=== PATIENT | male | born 1940 | race Caucasian/White ===

== ENCOUNTER → 2017-09-24 10:20 | Outpatient (CLI) | payer MEDICARE, OTHER, SELFPAY ==
--- NOTE | 2017-09-24 | DI.CT.S_ITS ---
PROCEDURE: CT ABDOMEN WO/W CON INDICATIONS: RENAL CYST TECHNIQUE: Optional 5 mm thick noncontrast images acquired from the diaphragm to the iliac crests. After the administration of intravenous contrast, 5 mm thick images again acquired from the diaphragm to the iliac crests in the arterial and urographic phases. 5 mm thick coronal and sagittal reformats were then acquired. For radiation dose reduction, the following was used: automated exposure control, adjustment of mA and/or kV according to patient size. COMPARISON: [facility], US, US ABDOMEN COMPLETE, 09/19/2017, 13:29. [facility], CT, KIDNEY/ URETER/BLADDER, 08/19/2007, 11:21. FINDINGS: Image quality: Excellent. Lung bases: Bilobular 8mm diameter nodule within the right lung base is present. 2 mm diameter nodule within the right anterior lung base. These are unchanged. Fat-containing right posterior hemidiaphragmatic hernia. Lung bases are otherwise clear. Heart size is normal. Genitourinary: Kidneys are normal in size. There are 2 adjacent right interpolar renal cyst measuring 10 mm and 7 mm. No perinephric fat stranding. Nonobstructing 3 mm diameter right interpolar renal calculus is present. Within the left interpolar kidney laterally, there is a 21 mm diameter water density focus which measures no enhancement, and demonstrates a solitary thin septation anteriorly. Simple appearing cyst within the inferior pole left kidney medially, which is partially exophytic, measuring 17 mm. Nonobstructing 2 mm diameter calcification within the inferior pole left kidney. Other solid organs: Liver is normal in size and enhancement. Gallbladder is within normal limits. Biliary system is non dilated. Pancreas enhances normally. Spleen is normal in size and enhancement. No adrenal nodules. Peritoneum and bowel: Unenhanced bowel loops are normal in wall thickness and caliber. No free fluid or air. Nodes and vessels: No retroperitoneal or mesenteric adenopathy by size criteria. Aorta and inferior vena cava are normal in caliber. Bones: No suspicious bony lesions. No vertebral body compression fractures. Miscellaneous: No ventral hernias. IMPRESSION: 1. Benign left interpolar renal cyst. No evidence of malignancy. 2. Benign right lung base nodules. 3. Nonobstructing bilateral renal calculi. Dictated by: Kyra Farfan M.D. on 09/24/2017 at 11:56 Approved by: Kyra Farfan M.D. on 09/24/2017 at 12:06
== END ==
PROVIDERS: Family Provider Urology; PCP Family Medicine; Visit Provider Family Medicine
DX: N28.1 Cyst of kidney, acquired (principal); R91.8 Other nonspecific abnormal finding of lung field; N20.0 Calculus of kidney
CPT/HCPCS: 74170; Q9967

== ENCOUNTER → 2018-03-13 16:27 | Outpatient (CLI) | payer MEDICARE, OTHER, SELFPAY ==
--- NOTE | 2018-03-13 16:33 | DI.RAD.S_ITS ---
PROCEDURE: XR SHOULDER RT MIN 2V INDICATIONS: RIGHT SHOULDER PAIN TECHNIQUE: 3 views of the shoulder were acquired. COMPARISON: None. FINDINGS: Bones: No fractures or dislocations. No suspicious bony lesions. Visualized ribs appear intact. Mild joint narrowing with periarticular osteophyte formation of the acromioclavicular and glenohumeral joint. Soft tissues: Trace calcification involving the rotator cuff. Dystrophic calcification adjacent to the acromion. IMPRESSION: Mild acromioclavicular and glenohumeral joint degeneration. Dystrophic calcification adjacent to the acromion and trace calcific tendinitis of the rotator cuff. Dictated by: Francis MUÑOZ Interpreted: Lesly Plunkett MD on 03/13/2018 at 16:45 Approved by: Lesly Plunkett M.D. on 03/13/2018 at 17:01
== END ==
PROVIDERS: Family Provider Urology; PCP Family Medicine; Referring Provider Internal Medicine Endocrinology, Diabetes & Metabolism; Visit Provider Family Medicine
DX: M25.511 Pain in right shoulder (principal); M19.011 Primary osteoarthritis, right shoulder; M25.811 Other specified joint disorders, right shoulder
CPT/HCPCS: 73030

== ENCOUNTER → 2018-03-30 10:06 | Outpatient (CLI) | payer MEDICARE, OTHER, SELFPAY | PROVIDERS: Family Provider Family Medicine; PCP Family Medicine; Visit Provider Urology | DX: R97.20 Elevated prostate specific antigen [PSA] (principal) | CPT/HCPCS: 36415; 84153 ==

== ENCOUNTER → 2019-04-21 10:22 | Outpatient (CLI) | payer MEDICARE, OTHER, SELFPAY ==
[2019-04-21 10:48] LABS: Blood Urea Nitrogen 25 mg/dL (9-20); Estimated Glomerular Filt Rate > 60.0 mL/min (>60)
== END ==
PROVIDERS: PCP Family Medicine; Visit Provider Physician Assistant
DX: N28.1 Cyst of kidney, acquired (principal); N42.31 Prostatic intraepithelial neoplasia
CPT/HCPCS: 36415; 82565; 84520

== ENCOUNTER → 2019-04-22 11:24 | Outpatient (CLI) | payer MEDICARE, OTHER, SELFPAY ==
--- NOTE | 2019-04-22 | DI.CT.S_ITS ---
PROCEDURE: CT ABDOMEN WO/W CON INDICATIONS: Cyst of kidney, acquired TECHNIQUE: Optional 5 mm thick noncontrast images acquired from the diaphragm to the iliac crests. After the administration of intravenous contrast, 5 mm thick images again acquired from the diaphragm to the iliac crests in the arterial and urographic phases. 5 mm thick coronal and sagittal reformats were then acquired. For radiation dose reduction, the following was used: automated exposure control, adjustment of mA and/or kV according to patient size. COMPARISON: [facility], CT, CT ABDOMEN WO/W CON, 09/24/2017, 10:26. FINDINGS: Image quality: Excellent. Lung bases: Lung bases are clear. Heart size is normal. Genitourinary: The kidneys demonstrate symmetric size and enhancement. A low density cortical cyst is present within the midpole the left kidney. An intermediate density exophytic cyst is present off the lower pole the left kidney. This demonstrates 25 Hounsfield units on the noncontrast and arterial phase studies and 27 Hounsfield units on the delayed phase study. An 8 mm diameter cyst is also present within the right renal cortex. No hydronephrosis or nephrolithiasis. Other solid organs: Liver is normal in size and enhancement. Gallbladder is unremarkable. Biliary system is non dilated. Pancreas enhances normally. Spleen is normal in size and enhancement. No adrenal nodules. Peritoneum and bowel: Unenhanced bowel loops are normal in wall thickness and caliber. No free fluid or air. Nodes and vessels: No retroperitoneal or mesenteric adenopathy by size criteria. Aorta and inferior vena cava are normal in caliber. Bones: No suspicious bony lesions. No vertebral body compression fractures. Miscellaneous: No ventral hernias. IMPRESSION: 1. Bilateral renal cysts. The left lower pole renal cyst is slightly hyperdense in nature. No hydronephrosis or nephrolithiasis. No further followup recommended. Dictated by: Denise Bautista M.D. on 04/22/2019 at 14:52 Approved by: Denise Bautista M.D. on 04/22/2019 at 15:00
== END ==
PROVIDERS: PCP Family Medicine; Visit Provider Physician Assistant
DX: N28.1 Cyst of kidney, acquired (principal)
CPT/HCPCS: 74170; Q9967

== ENCOUNTER → 2020-02-29 07:39 | Outpatient (CLI) | payer MEDICARE, OTHER, SELFPAY ==
--- NOTE | 2020-02-29 | DI.MRI.S_ITS ---
PROCEDURE: MR HEAD/BRAIN WO/W CON INDICATIONS: Headache, unspecified TECHNIQUE: Noncontrast axial T1 spin echo, axial T2 fast spin echo, sagittal and axial FLAIR, coronal T2 fast spin echo, axial gradient echo, axial diffusion and ADC through the brain. After the administration of contrast, axial and coronal T1 spin echo with fat saturation through the brain. COMPARISON: None. FINDINGS: Image quality: Excellent. CSF spaces: Basal cisterns are patent. No extra-axial fluid collections. Ventricles are normal in size and shape. Brain: No midline shift. No intracranial bleeds or masses. No abnormal intracranial enhancement. There is cerebral volume loss for age. There is periventricular white matter chronic small vessel ischemic change. The brainstem appears normal. Diffusion-weighted images demonstrate no acute ischemic insults. No chronic ischemic insults. Normal intravascular flow voids are present. Skull and face: Calvarial marrow is normal in signal. Orbits appear normal. Sinuses: Sinuses and mastoids appear clear. IMPRESSION: 1. Volume loss and small vessel ischemic disease. 2. No acute process. No recent infarct. Dictated by: Kyra Farfan M.D. on 02/29/2020 at 10:28 Approved by: Kyra Farfan M.D. on 02/29/2020 at 10:29
== END ==
PROVIDERS: PCP Family Medicine; Referring Provider Family Medicine; Visit Provider Family Medicine
DX: R51.9 Headache, unspecified (principal); H57.12 Ocular pain, left eye
CPT/HCPCS: 70553

== ENCOUNTER → 2020-05-26 15:19 | Outpatient (CLI) | payer MEDICARE, OTHER, SELFPAY ==
[2020-05-26 16:14] LABS: Appearance Urine UA CLEAR; Bilirubin Urine UA NEGATIVE (NEGATIVE); Color Urine UA YELLOW; Glucose Urine UA NEGATIVE (Negative); Ketones Urine UA NEGATIVE (NEGATIVE); Leukocyte Esterase Urine UA NEGATIVE (NEGATIVE); Nitrite Urine UA NEGATIVE (Negative); Occult Blood Urine UA 3+ (Negative); Protein Urine UA NEGATIVE (Negative); Specific Gravity Urine UA 1.025 (1.000-1.035); Urobilinogen Urine UA 0.2 E.U./dL (0.2)
[2020-05-26 16:16] LABS: Bacteria Urine None Seen; WBC Urine None Seen (0-5/HPF)
[2020-05-26 16:26] LABS: Amorphous Sediment Urine 2+; Culture Indicated Urine Cult Not Indicated; RBC Urine 5-10/HPF (0-5/HPF)
== END ==
PROVIDERS: PCP Family Medicine; Referring Provider Specialist; Visit Provider Specialist
DX: N39.0 Urinary tract infection, site not specified (principal)
CPT/HCPCS: 81003; 81015

== ENCOUNTER 2020-07-17 14:13 | Emergency (ER) | payer MEDICARE, OTHER, SELFPAY ==
[2020-07-17] VITALS (12 sets, daily range): BP systolic 120–182; BP diastolic 68–93; PULSE 103–129; RESP 18–96; TEMP 36.6–37.1; O2SAT 94–97
--- NOTE | 2020-07-17 15:20 | ED.GENADULT ---
HPI - General Adult General Chief complaint: Urogenital-Male Stated complaint: Bad Reaction, Diarrhea, Shock, Muscle Pain Time Seen by Provider: 07/17/20 15:07 Source: patient and family Mode of arrival: Wheelchair Limitations: no limitations History of Present Illness HPI narrative: Patient is a 80-year-old male here for evaluation of multiple complaints. He states if the past couple days he has had burning with urination. Has had hesitancy. He states the pain is at the tip of his penis. He does state that he has have urinary frequency and dysuria. He does have prostate issues. He states that this morning he had 1 episode of uncontrollable diarrhea. That has symptoms resolved. He has not had any recent antibiotics. He has had prostatitis in the past every states this feels different than that. Denies any recent antibiotics. No recent travel. No vomiting. Related Data Home Medications Medication Instructions Recorded Confirmed aspirin 81 mg tablet,delayed 81 mg PO DAILY 02/25/20 05/23/20 release glipizide 5 mg tablet 5 mg PO DAILY 02/25/20 05/23/20 losartan 25 mg tablet 25 mg PO DAILY 02/25/20 05/23/20 metformin 500 mg tablet 500 mg PO DAILY 02/25/20 05/23/20 simvastatin 20 mg tablet 20 mg PO DAILY 02/25/20 05/23/20 Previous Rx's Medication Instructions Recorded tamsulosin 0.4 mg capsule 0.4 mg PO BEDTIME #90 cap 02/28/20 ciprofloxacin HCl 500 mg tablet 500 mg PO BID #6 tab 04/19/20 levofloxacin 500 mg PO DAILY 5 Days #5 tab 07/17/20 phenazopyridine [Pyridium] 100 mg PO TID PRN #6 tab 07/17/20 Allergies Allergy/AdvReac Type Severity Reaction Status Date / Time erythromycin base Allergy Intermediate RASH Unverified 05/23/20 11:20 [ERYTHROMYCIN BASE] Review of Systems Constitutional Constitutional: Denies fatigue and Denies fever(s) Cardiovascular Cardiovascular: Denies chest pain and Denies dyspnea Respiratory Respiratory: Denies dyspnea Gastrointestinal Gastrointestinal: Denies abdominal pain, Reports diarrhea, Denies nausea and Denies vomiting Genitourinary Genitourinary: Reports dysuria, Reports urinary hesitancy, Reports urinary incontinence and Reports urinary urgency Genitourinary: Reports dysuria, Reports urinary incontinence, Reports urinary hesitancy and Reports urinary urgency Musculoskeletal Musculoskeletal: Denies arthralgias and Denies myalgias Integumentary/Breasts Skin/Breast: Denies rash Neurologic Neurologic: Denies behavioral changes Psychiatric Psychiatric: Denies behavioral changes Endocrine Endocrine: Denies fatigue Hematologic/Lymphatic On Anticoagulants: No Allergic/Immunologic Allergic/Immunologic: Denies urticaria Patient History Medical History Diabetes Elevated PSA Erectile dysfunction History of nephrolithiasis Kidney stones 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 Social History Smoking Status: Never smoker Smoking Status: Never smoker alcohol intake frequency: other Substance Use Type: does not use Exam Initial Vital Signs Initial Vital Signs: Vital Signs Temperature 98.7 F 07/17/20 14:26 Pulse Rate 122 H 07/17/20 14:26 Respiratory Rate 18 07/17/20 14:26 Blood Pressure 160/75 H 07/17/20 14:26 Pulse Oximetry 97 07/17/20 14:26 Const General: cooperative and comfortable Limitations: mental status not altered HENMT Head: normal to inspection and normocephalic Resp Effort & Inspection: normal respiratory effort Auscultation: clear to auscultation bilaterally Cardio Rate: tachycardic Rhythm: regular rhythm Pulses: radial pulses present GI Inspection: non-distended Palpation: soft, No firm and No tender Skin Lesions: no lesions Rashes: no rashes Neuro General: patient alert and patient awake Cognition: normal cognition Speech: speech normal Extrem General: capillary refill normal Psych Appearance: grossly normal and well kempt Course Orders Ordered: ED Orders 07/17/20 14:32 EKG-12 Lead Stat RT Consult Eval and Treat Now 07/17/20 15:00 Urine Culture Stat Urine Microscopic Stat 07/17/20 15:08 Blood Culture Stat Complete Blood Count AUTO DIFF Stat Comprehensive Metabolic Panel Stat Lactate (Lactic Acid) Stat Lipase Stat Partial Thromboplastin Time Stat Procalcitonin Stat Prothrombin Time INR Stat Discontinued Medications Sodium Chloride (Normal Saline 0.9%) 1,000 mls @ 1,000 mls/hr IV BOLUS ONE Stop: 07/17/20 15:31 Last Infusion: 07/17/20 16:36 Dose: 0 mls/hr Documented by: Admin: 07/17/20 15:27 Dose: 1,000 mls/hr Documented by: ROSANNE Levofloxacin (Levofloxacin 250 Mg Tablet) 500 mg PO NOW ONE Stop: 07/17/20 17:08 Last Admin: 07/17/20 17:39 Dose: 500 mg Documented by: ROSANNE Phenazopyridine HCl (Phenazopyridine 100 Mg Tablet) 100 mg PO NOW ONE Stop: 07/17/20 17:57 Last Admin: 07/17/20 18:25 Dose: 100 mg Documented by: KEVIN Vital Signs Vital signs: Vital Signs - 8 hr 07/17/20 14:26 07/17/20 15:32 07/17/20 16:00 Temperature 98.7 F Pulse Rate 122 H 111 H 103 H Respiratory Rate 18 22 22 Blood Pressure 160/75 H 122/72 Pulse Oximetry 97 94 95 07/17/20 16:30 07/17/20 16:34 07/17/20 17:02 Temperature Pulse Rate 129 H 111 H 121 H Respiratory Rate 37 H 23 Blood Pressure 182/93 H 151/87 H Pulse Oximetry 95 97 96 07/17/20 17:30 07/17/20 17:38 07/17/20 17:39 Temperature Pulse Rate 112 H 110 H Respiratory Rate Blood Pressure 136/71 Pulse Oximetry 96 95 07/17/20 18:00 07/17/20 18:03 07/17/20 18:32 Temperature 97.9 F Pulse Rate 111 H 111 H Respiratory Rate 96 H Blood Pressure 120/68 120/68 Pulse Oximetry 96 96 Medical Decision Making Lab Data Lab results reviewed: Yes I reviewed the patient's lab results. Result diagrams: 07/17/20 15:08 07/17/20 15:08 Labs: Lab Results 07/17/20 07/17/20 07/17/20 Range/Units 15:00 15:08 15:08 WBC 23.5 H (4.5-11.0) X10^3/uL RBC 4.74 (4.5-5.9) X10^6/uL Hgb 14.2 (13.5-17.5) g/dL Hct 42.5 (41-53) % MCV 89.7 (80-100) fL MCH 29.9 (26-34) PG MCHC 33.3 (30-36) % RDW 13.4 (11.6-14.8) % Plt Count 192 (150-400) X10^3/uL Neut % (Auto) 94.4 H (50-75) % Lymph % (Auto) 1.2 L (25-40) % [place] % (Auto) 4.0 (3-14) % Eos % (Auto) 0.1 L (2-4) % Baso % (Auto) 0.3 (0-2) % Neut # (Auto) 26931 H (6692-4118) /uL Lymph # (Auto) 300 L (1477-7440) /uL [place] # (Auto) 1000 H (0-900) /uL Eos # (Auto) 0 (0-450) /uL Baso # (Auto) 100 (0-100) /uL PT 11.5 (10.1-12.7) SECONDS INR 1.0 (0.9-1.3) APTT 28 (26.4-36.2) SECONDS Sodium (137-145) mmol/L Potassium (3.4-5.1) mmol/L Chloride (98-107) mmol/L Carbon Dioxide (22-32) mmol/L BUN (9-20) mg/dL Creatinine (0.66-1.25) mg/dL Estimated GFR (>60) mL/min BUN/Creatinine Ratio (6-22) Glucose (80-110) mg/dL Lactate (0.7-2.1) mmol/L Calcium (8.4-10.2) mg/dL Total Bilirubin (0.2-1.3) mg/dL AST (17-59) IU/L ALT (<50) IU/L Alkaline Phosphatase (38-126) U/L Total Protein (6.3-8.2) g/dL Albumin (3.5-5.0) g/dL Globulin (1.7-4.1) g/dL Albumin/Globulin Ratio (1.0-2.8) Lipase (23-300) U/L Procalcitonin (<0.5) ng/mL Urine RBC 5-10/hpf H (0-5/HPF) Urine WBC 30-100/hpf H (0-5/HPF) Ur Squamous Epith Cells None seen (0-5/HPF) Urine Bacteria Few (2-10) H (None) Ur Culture Indicated? Specimen cultured 07/17/20 07/17/20 Range/Units 15:08 15:08 WBC (4.5-11.0) X10^3/uL RBC (4.5-5.9) X10^6/uL Hgb (13.5-17.5) g/dL Hct (41-53) % MCV (80-100) fL MCH (26-34) PG MCHC (30-36) % RDW (11.6-14.8) % Plt Count (150-400) X10^3/uL Neut % (Auto) (50-75) % Lymph % (Auto) (25-40) % [place] % (Auto) (3-14) % Eos % (Auto) (2-4) % Baso % (Auto) (0-2) % Neut # (Auto) (3861-7453) /uL Lymph # (Auto) (6707-6783) /uL [place] # (Auto) (0-900) /uL Eos # (Auto) (0-450) /uL Baso # (Auto) (0-100) /uL PT (10.1-12.7) SECONDS INR (0.9-1.3) APTT (26.4-36.2) SECONDS Sodium 132 L (137-145) mmol/L Potassium 4.6 (3.4-5.1) mmol/L Chloride 100 (98-107) mmol/L Carbon Dioxide 25 (22-32) mmol/L BUN 29 H (9-20) mg/dL Creatinine 0.88 (0.66-1.25) mg/dL Estimated GFR > 60.0 (>60) mL/min BUN/Creatinine Ratio 33.0 H (6-22) Glucose 228 H (80-110) mg/dL Lactate 1.5 (0.7-2.1) mmol/L Calcium 9.3 (8.4-10.2) mg/dL Total Bilirubin 0.6 (0.2-1.3) mg/dL AST 24 (17-59) IU/L ALT 20 (<50) IU/L Alkaline Phosphatase 79 (38-126) U/L Total Protein 7.0 (6.3-8.2) g/dL Albumin 4.2 (3.5-5.0) g/dL Globulin 2.8 (1.7-4.1) g/dL Albumin/Globulin Ratio 1.5 (1.0-2.8) Lipase 27 (23-300) U/L Procalcitonin 0.39 (<0.5) ng/mL Urine RBC (0-5/HPF) Urine WBC (0-5/HPF) Ur Squamous Epith Cells (0-5/HPF) Urine Bacteria (None) Ur Culture Indicated? Urine Dip Bedside Urine Glucose Negative Bedside Urine Bilirubin - Negative Bedside Urine Ketone - Negative Urine Specific [place] 1.025 Bedside Urine Occult Blood ++ Bedside Urine pH 6.0 Bedside Urine Protein - Negative Bedside Urine Urobilinogen - Negative Bedside Urine Nitrite - Negative Bedside Urine Leukocytes ++ 125 Esterase Point of care testing: Urine Dip Bedside Urine Glucose Negative Bedside Urine Bilirubin - Negative Bedside Urine Ketone - Negative Urine Specific [place] 1.025 Bedside Urine Occult Blood ++ Bedside Urine pH 6.0 Bedside Urine Protein - Negative Bedside Urine Urobilinogen - Negative Bedside Urine Nitrite - Negative Bedside Urine Leukocytes ++ 125 Esterase ECG Data Attestation: I personally reviewed and interpreted this ECG as follows: Prior ECG tracings: not available for review Interpretation: Sinus tachycardia Ventricular rate of 118 Normal axis Normal QRS Normal QTC No ST T wave changes MDM Narrative Medical decision making narrative: Patient is nontoxic appearing. He does have a soft abdomen. His respiratory rate was not 96 has was listed on his vital signs. This was a mistake in input. Was tachycardic with this did improve with fluids. He is having quite a bit a urinary symptoms. I do suspect that this is the reason for his leukocytosis. I did not do a prostate exam on him today however he is not having any symptoms of his prior episodes of prostatitis. Will start him on Levaquin for urinary tract infection. Patient has not had any further diarrhea. I do feel that C diff is unlikely given his presentation although it is a suspicion if things continue obtaining a stool sample may be helpful. Will also give peridium for his symptoms peer he was given return precautions and follow-up instructions. He expressed understanding and agreement. Discharge Plan Departure Patient Disposition: Home Clinical Impression: Urinary tract infection Instructions: DI for Urinary Tract Infection (UTI) Activity Restrictions/Additional Instructions: Recommend that you take the Pyridium as directed. Also recommend you take the antibiotic as directed. Since you are taking so much ibuprofen/Motrin I do recommend you start on a medicine such as famotidine/Pepcid. You can purchase this [id number]. This medication is helpful in protecting your stomach against ulcers. Contact your primary provider for follow-up. Contact your urologist for follow-up as well. Return to the emergency department for any new or worsening symptoms Prescriptions: New levofloxacin 500 mg tablet 500 mg PO DAILY 5 Days Qty: 5 RF: 0 phenazopyridine [Pyridium] 100 mg tablet 100 mg PO TID PRN (Reason: pain) Qty: 6 RF: 0 No Action glipizide 5 mg tablet 5 mg PO DAILY RF: 0 metformin 500 mg tablet 500 mg PO DAILY RF: 0 simvastatin 20 mg tablet 20 mg PO DAILY RF: 0 losartan 25 mg tablet 25 mg PO DAILY RF: 0 aspirin [Adult Aspirin Regimen] 81 mg tablet,delayed release (DR/EC) 81 mg PO DAILY RF: 0 ciprofloxacin HCl [Cipro] 500 mg tablet 500 mg PO BID Qty: 6 RF: 0 tamsulosin 0.4 mg capsule 0.4 mg PO BEDTIME Qty: 90 RF: 3 Referrals: Jesús Chavez MD [Primary Care Provider] -
[2020-07-17 15:22] LABS: Add Manual Diff / Slide Review NO; Basophils Absolute Auto 100 /uL (0-100); Basophils Percent Auto 0.3 % (0-2); Eosinophils Absolute Auto 0 /uL (0-450); Eosinophils Percent Auto 0.1 % (2-4); Hematocrit 42.5 % (41-53); Hemoglobin 14.2 g/dL (13.5-17.5); Lymphocytes Absolute Auto 300 /uL (1100-4500); Lymphocytes Percent Auto 1.2 % (25-40); Mean Corpuscular HGB Conc 33.3 % (30-36); Mean Corpuscular Hemoglobin 29.9 PG (26-34); Mean Corpuscular Volume 89.7 fL (80-100); Monocytes Absolute Auto 1000 /uL (0-900); Neutrophils Absolute Auto 22200 /uL (1500-7000); Neutrophils Percent Auto 94.4 % (50-75); Platelet Count 192 X10^3/uL (150-400); Red Blood Cell Count 4.74 X10^6/uL (4.5-5.9); Red Cell Distribution Width 13.4 % (11.6-14.8); White Blood Cell Count 23.5 X10^3/uL (4.5-11.0)
[2020-07-17] MEDS: SODIUM CHLORIDE 0.9% 1,000 ML 1000 ML IV (15:27)
[2020-07-17 15:32] LABS: Prothrombin Time 11.5 SECONDS (10.1-12.7)
[2020-07-17 15:35] LABS: PTT Partial Thromboplastin Tim 28 SECONDS (26.4-36.2)
[2020-07-17 15:37] LABS: Bacteria Urine Few (2-10); Culture Indicated Urine Specimen Cultured; RBC Urine 5-10/HPF (0-5/HPF); Squamous Epithelial Cell Urine None Seen (0-5/HPF); WBC Urine 30-100/HPF (0-5/HPF)
[2020-07-17 15:39] LABS: Lactate (Lactic Acid) 1.5 mmol/L (0.7-2.1)
[2020-07-17 15:41] LABS: Alanine Aminotransferase 20 IU/L (<50); Albumin 4.2 g/dL (3.5-5.0); Albumin Globulin Ratio 1.5 (1.0-2.8); Alkaline Phosphatase 79 U/L (38-126); Aspartate Aminotransferase 24 IU/L (17-59); Bilirubin Total 0.6 mg/dL (0.2-1.3); Blood Urea Nitrogen 29 mg/dL (9-20); Calcium 9.3 mg/dL (8.4-10.2); Carbon Dioxide 25 mmol/L (22-32); Chloride 100 mmol/L (98-107); Estimated Glomerular Filt Rate > 60.0 mL/min (>60); Globulin 2.8 g/dL (1.7-4.1); Glucose 228 mg/dL (80-110); HEMOLYSIS 23 (0-50); Lipase 27 U/L (23-300); Potassium 4.6 mmol/L (3.4-5.1); Sodium 132 mmol/L (137-145)
[2020-07-17 15:57] LABS: Procalcitonin 0.39 ng/mL (<0.5)
[2020-07-17] MEDS: levoFLOXacin 250 MG TABLET 500 MG PO (17:39)
[2020-07-17] MEDS: PHENAZOPYRIDINE 100 MG TABLET PO (18:25)
== END 2020-07-17 18:34 | disposition home or self-care (01) ==
PROVIDERS: Emergency Provider Emergency Medicine; PCP Family Medicine
DX: N39.0 Urinary tract infection, site not specified (principal); N48.89 Other specified disorders of penis; R19.7 Diarrhea, unspecified; R00.0 Tachycardia, unspecified
CPT/HCPCS: 36415; 51798; 80053; 81003; 81015; 83605; 83690; 84145; 85025; 85610; 85730; 87040; 87077; 87086; 87186; 93005; 96360; 99283; 99284

== ENCOUNTER → 2020-09-26 11:37 | Outpatient (CLI) | payer MEDICARE, OTHER, SELFPAY ==
--- NOTE | 2020-09-26 11:43 | DI.RAD.S_ITS ---
PROCEDURE: XR RIBS RT MIN 3V W CXR 1V INDICATIONS: RT CHEST PAIN TECHNIQUE: 2 views of the right ribs were acquired, along with a single view chest. COMPARISON: None. FINDINGS: Surgical changes and devices: None. Bones and chest wall: No fractures or dislocations. No suspicious bony lesions. Overlying soft tissues appear unremarkable. Lungs and pleura: No pleural effusions or pneumothorax. Lungs appear clear. Mediastinum: Mediastinal contours appear normal. Heart size is normal. IMPRESSION: No definite radiographically visible rib fracture or acute disease. Dictated by: Robby Arellano M.D. on 09/26/2020 at 15:04 Approved by: Robby Arellano M.D. on 09/26/2020 at 15:05
== END ==
PROVIDERS: PCP Family Medicine; Referring Provider Family Medicine; Visit Provider Family Medicine
DX: R07.9 Chest pain, unspecified (principal)
CPT/HCPCS: 71101

== ENCOUNTER → 2020-09-28 10:34 | Outpatient (CLI) | payer MEDICARE, OTHER, SELFPAY ==
[2020-09-28 12:12] LABS: BUN Creatinine Ratio 20.9 (6-22); Blood Urea Nitrogen 28 mg/dL (9-20); Estimated Glomerular Filt Rate 51.6 mL/min (>60)
== END ==
PROVIDERS: PCP Family Medicine; Referring Provider Family Medicine; Visit Provider Family Medicine
DX: R07.89 Other chest pain (principal)
CPT/HCPCS: 36415; 82565; 84520

== ENCOUNTER → 2020-09-29 10:40 | Outpatient (CLI) | payer MEDICARE, OTHER, SELFPAY ==
--- NOTE | 2020-09-29 | DI.CT.S_ITS ---
PROCEDURE: CT CHEST W CON INDICATIONS: Other chest pain TECHNIQUE: After the administration of intravenous contrast, 5 mm thick sections acquired from the pulmonary apices to the posterior costophrenic angles. 1 mm axial lung, 5 mm thick coronal and sagittal reformats and 7 mm axial MIP were acquired. For radiation dose reduction, the following was used: automated exposure control, adjustment of mA and/or kV according to patient size. COMPARISON: None. FINDINGS: Image quality: Excellent. Lungs and pleura: No acute air space opacities. No pleural effusions or pneumothorax. Central and peripheral airways are patent and normal in caliber. Mediastinum: Heart size is normal. No pericardial effusion. No mediastinal or hilar adenopathy by size criteria. Thoracic aorta and central pulmonary arteries are normal in size. Esophagus is normal in caliber. No hiatal hernia. Bones and chest wall: No suspicious bony lesions. No vertebral body compression fractures. No axillary or supraclavicular adenopathy by size criteria. Thyroid gland appears normal . Abdomen: Visualized upper abdominal solid organs appear normal. Upper abdominal bowel loops are normal in caliber. IMPRESSION: Source of chest pain is not seen. Normal for age. No pulmonary embolus found. Dictated by: Raphael Peraza M.D. on 09/29/2020 at 15:55 Approved by: Raphael Peraza M.D. on 09/29/2020 at 16:01
== END ==
PROVIDERS: PCP Family Medicine; Referring Provider Family Medicine; Visit Provider Family Medicine
DX: R07.89 Other chest pain (principal)
CPT/HCPCS: 71260; Q9967

== ENCOUNTER → 2022-01-31 13:46 | Outpatient (CLI) | payer MEDICARE, OTHER, SELFPAY ==
--- NOTE | 2022-01-31 | DI.CT.S_ITS ---
PROCEDURE: CT CHEST ABD PEL W CON INDICATIONS: ABNORMAL WEIGHT LOSS TECHNIQUE: After the administration of oral and intravenous contrast, axial sections acquired from the supraclavicular neck to the pubic symphysis. Coronal and sagittal reformats were performed. For radiation dose reduction, the following was used: automated exposure control, adjustment of mA and/or kV according to patient size. COMPARISON: [facility], CT, CT CHEST W CON, 09/29/2020, 11:11. FINDINGS: Image quality: Excellent. CHEST: Lower Neck: No enlarged lymph nodes. Thyroid: Within normal limits. Axillae: No enlarged lymph nodes. Chest Wall: Small intramuscular lipoma anterior to the left scapula. Right 4th rib bone island is unchanged. Lungs and Airways: Punctate calcified granuloma at the right upper lobe. Left lower lobe pulmonary nodule measuring 0.3 cm, unchanged since 09/29/2020. No acute airspace opacity. No mass. Pleura: No pneumothorax or pleural effusions. Heart: Heart size is normal. Coronary artery calcifications. No pericardial effusion. Thoracic Vessels: The aorta and pulmonary arteries demonstrate normal size. Mediastinum and Winsome: No enlarged lymph nodes. Esophagus: No wall thickening. No hiatal hernia. ABDOMEN: Liver: No focal lesion. Gallbladder: Unremarkable. Biliary ducts: Unremarkable. Pancreas: Unremarkable. Spleen: Unremarkable. Adrenal Glands: No nodule. Kidneys and Ureters: No hydronephrosis. Small simple appearing left renal cysts are similar compared to 2018. Stomach and Bowel: No small bowel obstruction. Somewhat prominent stool in the colon. A few colonic diverticuli. The appendix is not dilated. Peritoneum: No abnormal intraperitoneal fluid. No free air. Ventral Wall: No hernia. Abdominal Nodes: No retroperitoneal or mesenteric adenopathy by size criteria. Vessels: Aorta and inferior vena cava are normal in size. Moderate plaque. PELVIS: Pelvic Organs: Prostatomegaly. Bladder: No stones. Pelvic Nodes: No enlarged lymph nodes. Miscellaneous: No definite inguinal hernias are seen. Bones: Lucency at the inferior L3 vertebral body is increased in size compared to 2018. Ankylosis at the anterior SI joints. IMPRESSION: 1. No mass or significant pulmonary nodules. No adenopathy. 2. Somewhat prominent stool in the colon. Prostatomegaly. 3. L3 vertebral body lucency is increased in size compared to 2018. However, this has the appearance of a Schmorl's node. There is adjacent DDD. Dictated by: Tristin Oliva M.D. on 01/31/2022 at 16:56 Approved by: Tristin Oliva M.D. on 01/31/2022 at 17:09
== END ==
PROVIDERS: PCP Family Medicine; Referring Provider Family Medicine; Visit Provider Family Medicine
DX: R63.4 Abnormal weight loss (principal)
CPT/HCPCS: 71260; 74177; Q9967

== ENCOUNTER 2022-12-31 08:13 | Emergency (ER) | payer MEDICARE, OTHER, SELFPAY ==
[2022-12-31 08:18] VITALS: BP 155/87; PULSE 110; RESP 16; TEMP 36.7; O2SAT 97; BMI 20.5
[2022-12-31 09:07] LABS: Bacteria Urine Occasional (0-1); Culture Indicated Urine Specimen Cultured; RBC Urine 0-1/HPF (0-5/HPF); Squamous Epithelial Cell Urine 0-1 /HPF (0-5/HPF); WBC Urine 5-10/HPF (0-5/HPF)
--- NOTE | 2022-12-31 09:14 | ED.MALEGU ---
HPI - Male Genitourinary General Chief complaint: Urogenital-Male Stated complaint: lower back pain Time Seen by Provider: 12/31/22 09:10 Source: patient Mode of arrival: Family Vehicle Limitations: no limitations History of Present Illness HPI Narrative: This is an 82-year-old male with history of [id number] diabetes, hypertension, dyslipidemia, BPH on aspirin 81 mg daily. Patient has had lower back pain bilaterally for the last several days he is had occasional sharp pains in the flank initially on the right the left. Patient notes he is also had some sharp pains in the groin bilaterally. Patient states no dysuria but he is had frequency, urgency with a sense of incomplete emptying difficulty stopping and starting his stream which is worse than typical. Denies any testicular pain. Patient denies any hematuria. No fevers but did break out in a sweat. States he has had no nausea or vomiting. Denies any chest pain or shortness of breath. No diarrhea constipation. No black or bloody stools. Patient does note he is had kidney stones in the past he states this feels somewhat similar. He states usually has pain with UTIs. Patient states he is had prior lithotripsy in the past proximally 5-10 years ago. Allergic to erythromycin and lisinopril gives him a cough. No tobacco, occasional alcohol, no illicit. Dr. Chavez is his PCP. He saw Dr. Batres as his urologist remotely in the past. Patient is accompanied by his good friend today. He is he did not lives independently at home. Related Data Home Medications Medication Instructions Recorded Confirmed aspirin 81 mg tablet,delayed 81 mg PO DAILY 02/25/20 08/01/20 release (Adult Aspirin Regimen) glipizide 5 mg tablet 5 mg PO DAILY 02/25/20 08/01/20 losartan 25 mg tablet 25 mg PO DAILY 02/25/20 08/01/20 metformin 500 mg tablet 500 mg PO DAILY 02/25/20 08/01/20 simvastatin 20 mg tablet 20 mg PO DAILY 02/25/20 08/01/20 Previous Rx's Medication Instructions Recorded tamsulosin 0.4 mg capsule 0.4 mg PO BEDTIME #90 caps 02/28/20 finasteride 5 mg tablet 5 mg PO DAILY #90 tabs 08/01/20 nitrofurantoin 100 mg PO BID #14 caps 12/31/22 monohydrate/macrocrystals 100 mg capsule (Macrobid) Allergies Allergy/AdvReac Type Severity Reaction Status Date / Time erythromycin base Allergy Intermediate RASH Verified 12/31/22 08:26 [ERYTHROMYCIN BASE] lisinopril AdvReac Cough Verified 12/31/22 08:27 Review of Systems Review of Systems ROS Unobtainable: All systems reviewed & are unremarkable except as noted in HPI and below Patient History Medical History BPH w urinary obs/LUTS Diabetes Elevated PSA Erectile dysfunction History of nephrolithiasis Kidney stones 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 Social History Smoking Status: Never smoker Smoking Status: Never smoker alcohol intake frequency: other Substance Use Type: does not use Exam Narrative Exam Narrative: GENERAL: Alert and oriented x three, thin elderly male in mild distress. HEENT: Head normocephalic, atraumatic, EOMI, pupils reactive, face symmetric, moist mucous membranes NECK: Supple, full range of motion CARDIOVASCULAR: Regular rate and rhythm without murmurs, rubs or gallops. RESPIRATORY: Breath sounds equal bilaterally, no wheezes rales or rhonchi. ABDOMEN: Soft, nontender. Normoactive bowel sounds all 4 quadrants. No guarding or rebound, rigidity, no mass : No CVA tenderness. EXTREMITIES: Normal range of motion, no clubbing or edema. Neurovascularly intact NEUROLOGICAL: Cranial nerves II through XII grossly intact. Moving all extremities SKIN: Warm, dry, no petechiae, no rashes or lesions. Initial Vital Signs Initial Vital Signs: Vital Signs Temperature 98.0 F 12/31/22 08:18 Pulse Rate 110 H 12/31/22 08:18 Respiratory Rate 16 12/31/22 08:18 Blood Pressure 155/87 H 12/31/22 08:18 Pulse Oximetry 97 12/31/22 08:18 Oxygen Delivery Method Room Air 12/31/22 08:18 Course Orders Ordered: Discontinued Medications Acetaminophen (Acetaminophen 325 Mg Tablet) 975 mg PO NOW ONE Stop: 12/31/22 09:36 Last Admin: 12/31/22 09:41 Dose: 975 mg Documented By: JORGE Ondansetron HCl (Ondansetron 4 Mg Odt) 4 mg SL NOW PRN PRN Reason: Nausea And Vomiting Ondansetron HCl (Ondansetron 4 Mg/2 Ml Inj) 4 mg IV NOW PRN PRN Reason: Nausea And Vomiting Vital Signs Vital signs: Vital Signs - 8 hr 12/31/22 12:05 Pulse Rate 59 L Respiratory Rate 18 Blood Pressure 120/68 Pulse Oximetry 95 Oxygen Delivery Method Room Air MDM - Male Genitourinary Lab Data 12/31/22 10:00 12/31/22 10:35 Labs: Lab Results 12/31/22 12/31/22 12/31/22 Range/Units 08:34 10:00 10:35 WBC 11.3 H (4.5-11.0) X10^3/uL RBC 4.95 (4.5-5.9) X10^6/uL Hgb 14.8 (13.5-17.5) g/dL Hct 44.2 (41-53) % MCV 89.3 (80-100) fL MCH 30.0 (26-34) PG MCHC 33.6 (30-36) % RDW 13.7 (11.6-14.8) % Plt Count 155 (150-400) X10^3/uL Neut % (Auto) 90.1 H (50-75) % Lymph % (Auto) 3.8 L (25-40) % [place] % (Auto) 5.4 (3-14) % Eos % (Auto) 0.2 L (2-4) % Baso % (Auto) 0.5 (0-2) % Neut # (Auto) 46859 H (2772-7182) /uL Lymph # (Auto) 400 L (6271-9093) /uL [place] # (Auto) 600 (0-900) /uL Eos # (Auto) 0 (0-450) /uL Baso # (Auto) 100 (0-100) /uL Sodium 136 L (137-145) mmol/L Potassium 4.5 (3.4-5.1) mmol/L Chloride 102 (98-107) mmol/L Carbon Dioxide 29 (22-32) mmol/L BUN 26 H (9-20) mg/dL Creatinine 0.92 (0.66-1.25) mg/dL Estimated GFR > 60 (>60) mL/min BUN/Creatinine Ratio 28.3 H (6-22) Glucose 202 H (80-110) mg/dL Calcium 8.9 (8.4-10.2) mg/dL Total Bilirubin 0.4 (0.2-1.3) mg/dL AST 23 (17-59) IU/L ALT 18 (<50) IU/L Alkaline Phosphatase 65 (38-126) U/L Total Protein 6.5 (6.3-8.2) g/dL Albumin 3.7 (3.5-5.0) g/dL Globulin 2.8 (1.7-4.1) g/dL Albumin/Globulin Ratio 1.3 (1.0-2.8) Lipase 50 (23-300) U/L Urine RBC 0-1/hpf (0-5/HPF) Urine WBC 5-10/hpf H (0-5/HPF) Ur Squamous Epith Cells 0-1 /hpf (0-5/HPF) Urine Bacteria Occasional (0-1) (None) Ur Culture Indicated? Specimen cultured Urine Dip Bedside Urine Glucose Negative Bedside Urine Bilirubin - Negative Bedside Urine Ketone ++ 40 Urine Specific [place] 1.025 Bedside Urine Occult Blood +/- Bedside Urine pH 6.0 Bedside Urine Protein - Negative Bedside Urine Urobilinogen - Negative Bedside Urine Nitrite - Negative Bedside Urine Leukocytes +/- 15 Esterase MDM Narrative Medical decision making narrative: 82-year-old male with urinary symptoms he does have leukocyte esterase some ecchymosis ketones no nitrates. Micro shows 5-10 white cells, 0-1 RBC 0-1 squamous epithelials occasional bacteria was cultured. Patient had labs obtained and CT KUB suspect UTI versus kidney stone versus other. The show white count of 11. No acute renal function changes, electrolytes otherwise normal glucose is 202 LFTs are normal. Patient's CT KUB shows some perinephric stranding could be renal stone that is past versus infection, patient after some discussion does sound like he has some chronic back pain as well he does have degenerative changes on examination no red flag symptoms. He also noted to have left renal cyst. Findings were relayed to patient. He feels improved with the Tylenol and would like to continue with this has pain management. Discussed follow-up, return precautions and signs and symptoms to watch for. Patient states he has been taking Tylenol every 6 hours and occasional Aleve or ibuprofen in the morning or evening. He has not had anything for pain this morning, he did have his regular morning medications. Patient is open to some Tylenol but does not want anything stronger for pain. Discharge Plan Departure Patient Disposition: Home Clinical Impression: Acute UTI, Back pain, Cyst of left kidney Activity Restrictions/Additional Instructions: Follow-up with your physician for recheck regarding your symptoms. Your imaging today does show degenerative changes to the back, a simple cyst on the left kidney and enlarged prostate. Some of your symptoms maybe from your back, talk with your physician there are some noninvasive things like physical therapy that maybe helpful. You do appear to have an infection in your urine, take antibiotics until completed. Prescription sent to [facility] in [place] You may take Tylenol up to a 1000 mg every 6 hours and/or ibuprofen 600 mg every 6 hours as needed for pain Please return for fevers, rapidly worsening pain, loss of bowel or bladder control, new weakness, loss of sensation in her lower extremities, persistent vomiting or other new or concerning changes. Prescriptions: New nitrofurantoin monohyd/m-cryst [Macrobid] 100 mg capsule 100 mg PO BID Qty: 14 0RF Rx Instructions: must administer with a meal/food No Action glipizide 5 mg tablet 5 mg PO DAILY metformin 500 mg tablet 500 mg PO DAILY simvastatin 20 mg tablet 20 mg PO DAILY losartan 25 mg tablet 25 mg PO DAILY aspirin [Adult Aspirin Regimen] 81 mg tablet,delayed release (DR/EC) 81 mg PO DAILY tamsulosin 0.4 mg capsule 0.4 mg PO BEDTIME Qty: 90 3RF finasteride 5 mg tablet 5 mg PO DAILY Qty: 90 3RF Referrals: Jesús Chavez MD [Primary Care Provider] - Stand Alone Forms: Patient Portal/API
[2022-12-31] MEDS: ACETAMINOPHEN 325 MG TABLET 975 MG PO (09:41)
--- NOTE | 2022-12-31 09:51 | DI.CT.S_ITS ---
PROCEDURE: CT KIDNEY URETER BLADDER (KUB) INDICATIONS: flank pain, stone vs. uti, hx kidney stone. TECHNIQUE: Axial sections were acquired from the lung bases to the pubic symphysis. Coronal and sagittal reformats were performed. For radiation dose reduction, the following was used: automated exposure control, adjustment of mA and/or kV according to patient size. COMPARISON: [facility], CT, CT CHEST ABD PEL W CON, 01/31/2022, 15:50. [facility], CT, KIDNEY/ URETER/BLADDER, 08/19/2007, 11:21. FINDINGS: Lower thorax: The lung bases are clear. Heart size normal. No hiatal hernia. Liver: Normal in size and attenuation. No contour deformity present. Biliary system: No calcified cholelithiasis or pericholecystic inflammation. No intra or extrahepatic bile duct dilatation. Pancreas: Unremarkable without mass or inflammation evident. Spleen: Normal in size and density. Adrenals: Normal morphology and density. Reproductive system: Prostate is homogeneous and measures 5.3 x 5.5 x 6.7 cm Urinary system: Hypodensities in left kidney correspond with simple cysts on the prior exam. Left renal nonspecific perinephric stranding. No hydronephrosis bilaterally. There is a 2 mm nonobstructing right renal calculus in subcentimeter right renal cyst Gastrointestinal system: The bowel is unremarkable without evidence of bowel obstruction or inflammation. The stomach appears unremarkable. Multiple diverticula arise from the sigmoid colon without evidence of diverticulitis. Appendix: No findings to suggest acute appendicitis. Peritoneal spaces: No mesenteric or retroperitoneal adenopathy. No free air. No free fluid. Vasculature: Aortic atherosclerotic vascular calcification noted without evidence of aneurysm. Abdominal wall: Abdominal wall intact without evidence of ventral or inguinal hernias. Musculoskeletal: Normal bone mineralization. Degenerative disc disease and arthropathy noted in lower lumbar spine. No acute fractures. 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 IMPRESSION: 1. Non-specific left renal perinephric stranding without hydronephrosis or ureteral calculi. Differential possibilities include recently passed stone and less likely pyelonephritis. 2. Prostatic hypertrophy. Nonobstructive small right renal calculus. Bilateral renal cysts, better depicted on prior study. 3. Additional chronic findings as above Approved by: Zach Martinez M.D. on 12/31/2022 at 10:44
--- NOTE | 2022-12-31 10:03 | PC.NURSE ---
patient states that his pain is across his lower back and when he urinates he feels the tubes hurting on both sides but worse on the right.
[2022-12-31 10:08] LABS: Add Manual Diff / Slide Review NO; Basophils Absolute Auto 100 /uL (0-100); Basophils Percent Auto 0.5 % (0-2); Eosinophils Absolute Auto 0 /uL (0-450); Eosinophils Percent Auto 0.2 % (2-4); Hematocrit 44.2 % (41-53); Hemoglobin 14.8 g/dL (13.5-17.5); Lymphocytes Absolute Auto 400 /uL (1100-4500); Lymphocytes Percent Auto 3.8 % (25-40); Mean Corpuscular HGB Conc 33.6 % (30-36); Mean Corpuscular Volume 89.3 fL (80-100); Monocytes Absolute Auto 600 /uL (0-900); Monocytes Percent Auto 5.4 % (3-14); Neutrophils Absolute Auto 10200 /uL (1500-7000); Neutrophils Percent Auto 90.1 % (50-75); Platelet Count 155 X10^3/uL (150-400); Red Blood Cell Count 4.95 X10^6/uL (4.5-5.9); Red Cell Distribution Width 13.7 % (11.6-14.8); White Blood Cell Count 11.3 X10^3/uL (4.5-11.0)
[2022-12-31 11:05] LABS: Alanine Aminotransferase 18 IU/L (<50); Albumin 3.7 g/dL (3.5-5.0); Albumin Globulin Ratio 1.3 (1.0-2.8); Alkaline Phosphatase 65 U/L (38-126); Aspartate Aminotransferase 23 IU/L (17-59); BUN Creatinine Ratio 28.3 (6-22); Bilirubin Total 0.4 mg/dL (0.2-1.3); Blood Urea Nitrogen 26 mg/dL (9-20); Calcium 8.9 mg/dL (8.4-10.2); Carbon Dioxide 29 mmol/L (22-32); Chloride 102 mmol/L (98-107); Estimated Glomerular Filt Rate > 60 mL/min (>60); Globulin 2.8 g/dL (1.7-4.1); Glucose 202 mg/dL (80-110); HEMOLYSIS < 15 (0-50); Lipase 50 U/L (23-300); Potassium 4.5 mmol/L (3.4-5.1); Sodium 136 mmol/L (137-145); Total Protein 6.5 g/dL (6.3-8.2)
[2022-12-31 12:05] VITALS: BP 120/68; PULSE 59; RESP 18; O2SAT 95
== END 2022-12-31 12:06 | disposition home or self-care (01) ==
PROVIDERS: Emergency Provider Emergency Medicine; PCP Family Medicine
DX: N39.0 Urinary tract infection, site not specified (principal); M54.50 Low back pain, unspecified; N28.1 Cyst of kidney, acquired; Z79.899 Other long term (current) drug therapy
CPT/HCPCS: 36415; 74176; 80053; 81003; 81015; 83690; 85025; 87077; 87086; 87185; 87186; 99283; 99284

== ENCOUNTER → 2023-01-23 13:00 | Outpatient (CLI) | payer MEDICARE, OTHER, SELFPAY ==
--- NOTE | 2023-01-23 | DI.CT.S_ITS ---
PROCEDURE: CT CHEST ABD PEL W CON INDICATIONS: ABDOMINAL PAIN TECHNIQUE: After the administration of oral and intravenous contrast, axial sections acquired from the supraclavicular neck to the pubic symphysis. Coronal and sagittal reformats were performed. For radiation dose reduction, the following was used: automated exposure control, adjustment of mA and/or kV according to patient size. COMPARISON: [facility], CT, CT CHEST ABD PEL W CON, 01/31/2022, 15:50. FINDINGS: Image quality: Excellent. CHEST: Lower Neck: No enlarged lymph nodes. Thyroid: Unremarkable. Axillae: No enlarged lymph nodes. Chest Wall: Unremarkable. Lungs and Airways: No consolidation or suspicious nodules. Pleura: No pneumothorax or pleural effusions. Heart: Heart size is normal. No pericardial effusion. Thoracic Vessels: The aorta and pulmonary arteries demonstrate normal size. Scattered atheromatous calcifications are present within the aortic arch. Mediastinum and Winsome: No enlarged lymph nodes. Esophagus: No wall thickening. No hiatal hernia. ABDOMEN: Liver: Unremarkable. Gallbladder: Unremarkable. Biliary ducts: Unremarkable. Pancreas: Unremarkable. Spleen: Unremarkable. Adrenal Glands: Unremarkable. Kidneys and Ureters: Unremarkable. Low-density cysts are noted within the left kidney. Stomach and Bowel: Stomach, small bowel loops, and colon are unremarkable. The appendix is thin walled and gas filled. There are scattered sigmoid diverticula. No evidence for diverticulitis. Peritoneum: No abnormal intraperitoneal fluid. No free air. Ventral Wall: No hernia. Abdominal Nodes: No retroperitoneal or mesenteric adenopathy by size criteria. Vessels: Aorta and inferior vena cava are normal in size. There are scattered atheromatous calcifications throughout the aorta and iliac arteries bilaterally. PELVIS: Pelvic Organs: Unremarkable. The prostate is enlarged, as before. Bladder: Unremarkable. Pelvic Nodes: No enlarged lymph nodes. Miscellaneous: No inguinal hernias are seen. Bones: Unremarkable. IMPRESSION: 1. No acute thoracic or intra-abdominal findings. No discrete findings to explain abdominal pain. 2. Diverticulosis. No acute diverticulitis. Normal appendix. Dictated by: Denise Bautista M.D. on 01/23/2023 at 16:00 Approved by: Denise Bautista M.D. on 01/23/2023 at 16:05
== END ==
PROVIDERS: PCP Family Medicine; Referring Provider Family Medicine; Visit Provider Family Medicine
DX: K57.30 Diverticulosis of large intestine without perforation or abscess without bleeding (principal); R10.84 Generalized abdominal pain
CPT/HCPCS: 71260; 74177; Q9967

== ENCOUNTER → 2023-04-19 10:43 | Outpatient (CLI) | payer MEDICARE, OTHER, SELFPAY | PROVIDERS: PCP Family Medicine; Visit Provider Nurse Practitioner Family | DX: M54.50 Low back pain, unspecified (principal) | CPT/HCPCS: 87086 ==

== ENCOUNTER → 2023-05-26 11:30 | Outpatient (CLI) | payer MEDICARE, OTHER, SELFPAY ==
--- NOTE | 2023-05-26 | DI.RAD.S_ITS ---
PROCEDURE: XR LUMBAR SPINE MIN 4V INDICATIONS: PAIN TECHNIQUE: 5 views of the lumbar spine were acquired, including bilateral oblique views. COMPARISON: , , L-SPINE 2-3 VIEWS, 10/31/2015, 13:10. , , L-SPINE 2-3 VIEWS, 05/26/2007, 15:27. FINDINGS: Bones: 5 nonrib-bearing vertebrae are present. Straightening of the normal lumbar lordosis. There is multilevel facet arthropathy, worse at L4-5 and L5-S1. Mild multilevel disc height loss with degenerative endplate changes and spurring is present. No vertebral body compression fractures. No suspicious bony lesions. Soft tissues: Overlying bowel gas pattern is normal. No suspicious soft tissue calcifications. Atherosclerotic vascular calcifications. Oblique images: No pars defects. IMPRESSION: No acute bony abnormality. Mild degenerative changes of the lumbar spine. Dictated by: Bradley Peraza M.D. on 05/26/2023 at 15:29 Approved by: Bradley Peraza M.D. on 05/26/2023 at 15:30
== END ==
LOC: RAD 11:31
PROVIDERS: PCP Family Medicine; Referring Provider Family Medicine; Visit Provider Family Medicine
DX: M53.3 Sacrococcygeal disorders, not elsewhere classified (principal); M47.816 Spondylosis without myelopathy or radiculopathy, lumbar region; M47.817 Spondylosis without myelopathy or radiculopathy, lumbosacral region
CPT/HCPCS: 72110

== ENCOUNTER → 2024-06-21 08:03 | Outpatient (CLI) | payer MEDICARE, OTHER, SELFPAY ==
--- NOTE | 2024-06-21 08:05 | DI.ECHO.S_ITS ---
[facility] : : [id number] : [place] : : [id number] : : Phone: [phone] Echocardiogram Report + + :Name: MINO WOODRUFF Study Date: 06/21/2024 Height: 73 in : :[facility] ReadingLocation: Weight: 165 lb : : Gender: Male BSA: 2.0 m2 : :: 1940 Age: 84 yrs BP: 146/93 mmHg: :Reason For Study: HEART MURMUR : :Ordering Physician: GISEL, : :ANDREA Performed By: Cherelle Huerta : :Referring: ANDREA BATRES : + + Interpretation Summary The ejection fraction is estimated to be 55-60%. The left atrium is mildly dilated. The mitral valve leaflets appear moderately thickened, but open well. There is prolapse of the anterior mitral valve leaflet. The mitral regurgitant jet is eccentrically directed. There is moderate mitral regurgitation. There is mild tricuspid regurgitation. The right ventricular systolic pressure is estimated to be at least 26 mmHg based on an estimated right atrial pressure of 3 mm Hg. Procedure: A two-dimensional transthoracic echocardiogram with color flow and Doppler was performed. The study quality was technically adequate. There is no prior echocardiogram noted for this patient. The patient was in sinus rhythm with heart rates between 68-78 bpm during the exam. Left Ventricle: The left ventricle is normal in size and wall thickness. The ejection fraction is estimated to be 55-60%. Left ventricular wall motion is normal. Right Ventricle: The right ventricle is normal in size and function. Atria: The left atrium is mildly dilated. Right atrial size is normal. There is no Doppler evidence for an interatrial shunt. Mitral Valve: The mitral valve leaflets appear moderately thickened, but open well. There is prolapse of the anterior mitral valve leaflet. The mitral regurgitant jet is eccentrically directed. There is moderate mitral regurgitation. Aortic Valve: The aortic valve is trileaflet. The aortic valve is mildly calcified. There is no aortic valve stenosis. No aortic regurgitation is present. Tricuspid Valve: The tricuspid valve leaflets are thin and pliable. There is mild tricuspid regurgitation. The right ventricular systolic pressure is estimated to be at least 26 mmHg based on an estimated right atrial pressure of 3 mm Hg. Pulmonic Valve: The pulmonic valve leaflets are thin and pliable; valve motion is normal. There is mild pulmonic regurgitation. Great Vessels: The aortic root is normal size. The ascending aorta is mildly enlarged. The IVC is of normal diameter and collapses greater than 50% with a sniff. This suggests a low right atrial pressure of 3 mm Hg. Pericardium/ Pleura There is no pericardial effusion. There is no pleural effusion. MMode/2D Measurements & Calculations LVIDd: 5.6 cm LVOT diam: 2.0 cm LVIDs: 3.6 cm Ao root diam: 3.7 cm FS: 34.8 % asc Aorta Diam: 3.9 cm IVSd: 0.91 cm Ao Arch Diam (Prox Trans): 2.9 cm LVPWd: 0.79 cm LV persaud. diameter/BSA (cm/m^2): 2.8 LV sys. diameter/BSA (cm/m^2): 1.8 LA A2 area: 22.9 cm2 RA long axis: 4.9 cm LA A4 area: 16.7 cm2 RA area: 13.0 cm2 LA length (vol): 4.7 cm RA vol: 29.3 ml LA vol: 68.8 ml RA : 14.8 ml/m2 LA vol index: 34.7 ml/m2 IVC diam: 1.7 cm RVD1 (basal): 3.1 cm RVD2 (mid): 2.8 cm TAPSE: 1.7 cm Doppler Measurements & Calculations Ao V2 max: 145.2 cm/sec LVOT Max Geronimo: 94.7 cm/sec Ao V2 mean: 94.4 cm/sec LV V1 max P.6 mmHg Ao max P.4 mmHg LV V1 VTI: 17.0 cm Ao mean P.1 mmHg PRUDENCIO(I,D): 2.1 cm2 Ao V2 VTI: 26.2 cm PRUDENCIO(V,D): 2.1 cm2 sev ratio: 0.65 PRUDENCIO indexed to BSA (cm^2/m^2): 1.0 MV E max geronimo: 57.1 cm/sec TR max geronimo: 239.1 cm/sec MV A max geronimo: 84.2 cm/sec TR max P.9 mmHg MV E/A: 0.68 PA V2 max: 84.8 cm/sec Med Peak E' Geronimo: 5.8 cm/sec PA V2 mean: 55.2 cm/sec E/E' med: 9.8 PA mean P.4 mmHg Lat Peak E' Geronimo: 8.1 cm/sec PA pr(Accel): 27.6 mmHg E/E' lat: 7.1 E/e' average: 8.4 MV dec time: 0.22 sec SV(LVOT): 53.8 ml Reading Physician:12:00 PM
== END ==
PROVIDERS: PCP Family Medicine; Referring Provider Family Medicine; Visit Provider Family Medicine
DX: I08.1 Rheumatic disorders of both mitral and tricuspid valves (principal); R01.1 Cardiac murmur, unspecified
CPT/HCPCS: 93306

== ENCOUNTER → 2025-01-21 09:09 | Outpatient (CLI) | payer MEDICARE, OTHER, SELFPAY ==
--- NOTE | 2025-01-23 13:18 | DI.ECHO.S_ITS ---
:Name: MINO WOODRUFF? Study Date: 01/21/2025? Height: 73 in? : :Hospital ?ReadingLocation:? Weight: 166 lb : : ?Gender: Male?BSA: 2.0 m2??? : :: 1940? Age: 84 yrs? BP: 154/93 mmHg: :Reason For Study: CARDIAC MURMUR?: :Ordering Physician: ANDREA BATRES? Performed By: Boni Ca?: :Referring: ANDREA BATRES?: + + Interpretation Summary Left ventricular wall thickness is mildly increased. The ejection fraction is estimated to be 65-70%. There are no focal wall motion abnormalities. Grade I diastolic dysfunction with normal left atrial pressure. The right ventricle is normal in size and function. The left atrial size is normal. There is prolapse of the anterior mitral valve leaflet. There is mild to moderate mitral regurgitation. The mitral regurgitant jet is eccentrically directed. There is no other significant valvular heart disease. The ascending aorta is mildly enlarged. Procedure: ?A two-dimensional transthoracic echocardiogram with color flow and Doppler was performed. The study quality was technically good. Comparison is made with the echocardiogram of 06/21/2024. The heart rate ranged between 40-84 bpm during the study. Left Ventricle: ?The left ventricle is normal in size. Left ventricular wall thickness is mildly increased. There is no ventricular septal defect visualized. The ejection fraction is estimated to be 65-70%. There are no focal wall motion abnormalities. Grade I diastolic dysfunction with normal left atrial pressure. Right Ventricle: ?The right ventricle is normal in size and function. Atria: ?The left atrial size is normal. Right atrial size is normal.There is no Doppler evidence for an interatrial shunt. Mitral Valve: ?The mitral valve leaflets appear moderately thickened. There is prolapse of the anterior mitral valve leaflet. There is mild to moderate mitral regurgitation. The mitral regurgitant jet is eccentrically directed. Aortic Valve:? ?The aortic valve is trileaflet. The aortic valve opens well. The aortic valve is mildly calcified. No aortic regurgitation is present. Tricuspid Valve:? ?The tricuspid valve leaflets are thin and pliable. No tricuspid regurgitation. Pulmonic Valve: ?The pulmonic valve leaflets are thin and pliable;valve motion is normal. There is no pulmonic valvular regurgitation. There is no other significant valvular heart disease. Great Vessels:? ?The aortic root is normal size. The ascending aorta is mildly enlarged. The pulmonary artery is normal size. The IVC is of normal diameter and collapses greater than 50% with a sniff. This suggests a low right atrial pressure of 3 mm Hg. Pericardium/ Pleura ?Thereis no pericardial effusion. There is no pleural effusion. MMode/2D Measurements & Calculations LVIDd: 5.6 cm?LVOT diam: 2.3 cm LVIDs: 3.0 cm?Ao root diam: 3.6 cm FS: 46.4 %? asc Aorta Diam: 3.8 cm EPSS: 0.85 cm IVSd: 0.87 cm LVPWd: 1.2 cm LV persaud. diameter/BSA (cm/m^2): 2.8 LV sys. diameter/BSA (cm/m^2):1.5 LA A2 area: 19.5 cm2?RA long axis: 4.6 cm LA A4 area: 18.9 cm2?RA area: 13.4 cm2 LA length (vol): 5.2 cm? RA vol: 33.7 ml LA vol: 60.0 ml? RA : 16.9 ml/m2 LA vol index: 30.2 ml/m2?IVC diam: 1.7 cm RVD1 (basal): 3.3 cm RVD2 (mid): 3.0 cm TAPSE: 2.5 cm Doppler Measurements & Calculations Ao V2 max: 142.2 cm/sec? LVOT Max Geronimo: 103.4 cm/sec Ao V2 mean: 99.5 cm/sec?LV V1 max P.3 mmHg Ao max P.1 mmHg?LV V1 VTI: 21.9 cm Ao mean P.4 mmHg?PRUDENCIO(I,D): 3.1 cm2 Ao V2 VTI: 29.9 cm? PRUDENCIO(V,D): 3.1 cm2 sev ratio: 0.73 PRUDENCIO indexed to BSA (cm^2/m^2): 1.6 MV E max geronimo: 65.0 cm/sec? PA V2 max: 107.3 cm/sec MV A max geronimo: 89.3 cm/sec?PA V2 mean: 71.8 cm/sec MV E/A: 0.73? PA mean P.3 mmHg Med Peak E' Geronimo: 6.1 cm/sec?PA pr(Accel): 58.4 mmHg E/E' med: 10.6 Lat Peak E' Geronimo: 6.6 cm/sec E/E' lat: 9.8 E/e' average: 10.2 MV dec time: 0.20 sec SV(LVOT): 92.6 ml Reading Physician:01:18 PM
== END ==
LOC: ECHO 09:11
PROVIDERS: PCP Family Medicine; Referring Provider Family Medicine; Visit Provider Family Medicine
DX: I34.0 Nonrheumatic mitral (valve) insufficiency (principal); I34.1 Nonrheumatic mitral (valve) prolapse; R00.1 Bradycardia, unspecified; R01.1 Cardiac murmur, unspecified; I77.89 Other specified disorders of arteries and arterioles
CPT/HCPCS: 93306

== ENCOUNTER 2025-05-11 02:05 | Emergency (ER) | payer MEDICARE, OTHER, SELFPAY ==
[2025-05-11 02:05] VITALS: BP 171/101; PULSE 117; RESP 16; TEMP 36.8; O2SAT 96; BMI 21.9
--- NOTE | 2025-05-11 02:54 | DI.RAD.S_ITS ---
PROCEDURE: XR CHEST 1V INDICATIONS: Chest Pain TECHNIQUE: One view of the chest was acquired. COMPARISON: [facility], , CHEST 1 VIEW, 10/31/2015, 13:10. FINDINGS: Surgical changes and devices: None. Lungs and pleura: Lungs are clear. No pleural effusions or pneumothorax. Mediastinum: Mediastinal contours appear normal. Heart size is normal. Bones and chest wall: No suspicious bony lesions. Overlying soft tissues appear unremarkable. IMPRESSION: No acute cardiopulmonary abnormality is seen. Dictated by: Tristin Oliva M.D. on 05/11/2025 at 9:07 Approved by: Tristin Oliva M.D. on 05/11/2025 at 9:08
[2025-05-11 03:04] LABS: INR 0.9 (0.9-1.3); Prothrombin Time 9.9 SECONDS (9.4-12.5)
[2025-05-11 03:06] LABS: Add Manual Diff / Slide Review NO; Hematocrit 42.8 % (41-53); Hemoglobin 14.4 g/dL (13.5-17.5); Lymphocytes Absolute Auto 1200 /uL (1100-4500); Mean Corpuscular HGB Conc 33.5 % (30-36); Mean Corpuscular Hemoglobin 29.8 PG (26-34); Mean Corpuscular Volume 88.8 fL (80-100); Platelet Count 184 X10^3/uL (150-400)
[2025-05-11 03:07] LABS: PTT Partial Thromboplastin Tim 29 SECONDS (25.1-36.5)
[2025-05-11 03:09] LABS: Alanine Aminotransferase 17 IU/L (<50); Albumin 4.4 g/dL (3.5-5.0); Albumin Globulin Ratio 1.4 (1.0-2.8); Alkaline Phosphatase 81 U/L (38-126); Blood Urea Nitrogen 25 mg/dL (9-20); Calcium 9.3 mg/dL (8.4-10.2); Carbon Dioxide 26 mmol/L (22-32); Chloride 103 mmol/L (98-107); Creatine Kinase 53 U/L (55-170); Estimated Glomerular Filt Rate > 60 mL/min (>60); Globulin 3.2 g/dL (1.7-4.1); Glucose 179 mg/dL (70-99); HEMOLYSIS 27 (0-50); Lipase 64 U/L (23-300); Magnesium 1.9 mg/dL (1.6-2.3); Potassium 4.3 mmol/L (3.4-5.1); Sodium 136 mmol/L (137-145); Total Protein 7.6 g/dL (6.3-8.2)
[2025-05-11 03:21] LABS: NT-proBNP (BNP-Adult 18+) 64 pg/mL (<450); Troponin I < 0.012 ng/mL (0.01-0.034)
[2025-05-11 04:38] VITALS: BP 189/107; PULSE 76; RESP 20; O2SAT 97
[2025-05-11 04:52] VITALS: PULSE 85; RESP 17; O2SAT 95
--- NOTE | 2025-05-11 04:54 | ED.GENADULT ---
HPI - General Adult General Chief complaint: Hypertension Stated complaint: High Blood Pressure, Chest Pain Time Seen by Provider: 05/11/25 04:33 Source: patient Mode of arrival: Ambulatory History of Present Illness HPI narrative: Patient is a 84 year old man who presents with hypertension. Past medical history significant for hypertension, hyperlipidemia, diabetes, BPH. Patient reported nonradiating, substernal chest pressure without any associated dyspnea, diaphoresis, nausea, or vomiting. Related Data Home Medications ?Medication ?Instructions ?Recorded ?Confirmed aspirin 81 mg tablet,delayed 81 mg PO DAILY 02/25/20 04/19/23 release (Adult Aspirin Regimen) glipizide 5 mg tablet 5 mg PO DAILY 02/25/20 04/19/23 losartan 25 mg tablet 25 mg PO DAILY 02/25/20 04/19/23 metformin 500 mg tablet 500 mg PO DAILY 02/25/20 04/19/23 blood sugar diagnostic (Contour #10 ea 04/19/23 04/19/23 Next Test Strips) lancets 30 gauge ([email or web address] #100 ea 04/19/23 04/19/23 Plus Lancet) Previous Rx's ?Medication ?Instructions ?Recorded tamsulosin 0.4 mg capsule 0.4 mg PO BEDTIME #90 caps 02/28/20 Allergies Allergy/AdvReac Type Severity Reaction Status Date / Time erythromycin base Allergy Intermediate RASH Verified 05/11/25 02:55 (ERYTHROMYCIN BASE) lisinopril AdvReac Cough Verified 05/11/25 02:55 Review of Systems Review of Systems Narrative: See HPI. Patient History Medical History BPH w urinary obs/LUTS Diabetes Elevated PSA Erectile dysfunction History of nephrolithiasis Kidney stones 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 Social History Smoking Status: Never smoker Smoking Status: Never smoker alcohol intake frequency: other Exam Narrative Exam Narrative: Vitals: Afebrile, all other vitals within normal ranges. Gen: Well developed, well nourished, in no acute distress. Cards: Regular, no murmurs, rubs, or gallops. Pulm: Normal work of breathing. Clear to auscultation bilaterally. Abd: Nondistended, nontender to palpation. Ext: No peripheral edema in bilaterally lower extremity. Neuro: A&Ox4, cranial nerves are all intact, moving all 4 extremities spontaneously. Psych: Appropriate. Initial Vital Signs Initial Vital Signs: Vital Signs Temperature 98.3 F 05/11/25 02:05 Pulse Rate 117 H 05/11/25 02:05 Respiratory Rate 16 05/11/25 02:05 Blood Pressure 171/101 H 05/11/25 02:05 Pulse Oximetry 96 05/11/25 02:05 Oxygen Delivery Method Room Air 05/11/25 02:05 Scores HEART Score Heart Score history: Slightly Suspicious Heart Score EKG: Normal Heart Score Age: > or = 65 years old Heart Score risk factors: > 3 risk factors or hx of atherosclerotic disease Heart Score troponin: < or = to normal limit Heart Score Total: 4 Course Orders Ordered: Discontinued Medications Aspirin (Aspirin 81 Mg Chew Tab) 324 mg PO NOW ONE Stop: 05/11/25 02:55 Vital Signs Vital signs: Vital Signs - 8 hr 05/11/25 02:05 05/11/25 04:38 Temperature 98.3 F Pulse Rate 117 H 76 Respiratory Rate 16 20 Blood Pressure 171/101 H 189/107 H Pulse Oximetry 96 97 Oxygen Delivery Method Room Air Room Air Medical Decision Making Lab Data 05/11/25 02:07 05/11/25 02:07 Labs: Lab Results 05/11/25 Range/Units 02:07 WBC 12.5 H (4.5-11.0) X10^3/uL RBC 4.82 (4.5-5.9) X10^6/uL Hgb 14.4 (13.5-17.5) g/dL Hct 42.8 (41-53) % MCV 88.8 (80-100) fL MCH 29.8 (26-34) PG MCHC 33.5 (30-36) % RDW 14.1 (11.6-14.8) % Plt Count 184 (150-400) X10^3/uL Neut % (Auto) 80.6 H (50-75) % Lymph % (Auto) 9.5 L (25-40) % Steele % (Auto) 7.9 (3-14) % Eos % (Auto) 1.1 L (2-4) % Baso % (Auto) 0.9 (0-2) % Neut # (Auto) 61601 H (3321-2783) /uL Lymph # (Auto) 1200 (2256-6817) /uL Steele # (Auto) 1000 H (0-900) /uL Eos # (Auto) 100 (0-450) /uL Baso # (Auto) 100 (0-100) /uL PT 9.9 (9.4-12.5) SECONDS INR 0.9 (0.9-1.3) APTT 29 (25.1-36.5) SECONDS Sodium 136 L (137-145) mmol/L Potassium 4.3 (3.4-5.1) mmol/L Chloride 103 (98-107) mmol/L Carbon Dioxide 26 (22-32) mmol/L BUN 25 H (9-20) mg/dL Creatinine 0.89 (0.66-1.25) mg/dL Estimated GFR > 60 (>60) mL/min BUN/Creatinine Ratio 28.1 H (6-22) Glucose 179 H (70-99) mg/dL Calcium 9.3 (8.4-10.2) mg/dL Magnesium 1.9 (1.6-2.3) mg/dL Total Bilirubin 0.6 (0.2-1.3) mg/dL AST 25 (17-59) IU/L ALT 17 (<50) IU/L Alkaline Phosphatase 81 (38-126) U/L Total Creatine Kinase 53 L (55-170) U/L Troponin I < 0.012 (0.01-0.034) ng/mL NT-Pro-B Natriuret Pep 64 (<450) pg/mL Total Protein 7.6 (6.3-8.2) g/dL Albumin 4.4 (3.5-5.0) g/dL Globulin 3.2 (1.7-4.1) g/dL Albumin/Globulin Ratio 1.4 (1.0-2.8) Lipase 64 (23-300) U/L Imaging Data Chest x-ray: Radiologist's Impression: PROCEDURE: XR CHEST 1V INDICATIONS: Chest Pain TECHNIQUE: One view of the chest was acquired. COMPARISON: [facility], , CHEST 1 VIEW, 10/31/2015, 13:10. FINDINGS: Surgical changes and devices: None. Lungs and pleura: Lungs are clear. No pleural effusions or pneumothorax. Mediastinum: Mediastinal contours appear normal. Heart size is normal. Bones and chest wall: No suspicious bony lesions. Overlying soft tissues appear unremarkable. IMPRESSION: No acute cardiopulmonary abnormality is see MDM Narrative Medical decision making narrative: 84 year old man with a history of diabetes, hypertension, hyperlipidemia, presents with hypertension and chest pain. Differential diagnosis: ACS, CVA, hypertensive urgency/emergency, intracranial hemorrhage, volume overload, other. EMR review: Reviewed. There are limited encounters that are unrelated to his presentation today. Labs: CBC with mild leukocytosis (WBC 12.5) and left shift (neut% 80.6), no anemia, platelets normal. CMP with >60 GFR, Cr 0.80. Troponin <0.012. BNP 64. EKG: Unsure where EKG is. Imaging: Normal CXR. Consults: None ED course: The patient presented to the ED hypertensive at 189/107, with all other vital signs within normal limits. He was asymptomatic and exhibited no focal neurologic deficits. His ED workup did not reveal any evidence of end?organ damage. Current guidelines provide a Level C recommendation for screening for acute organ injury in cases of asymptomatic hypertension, and routine ED medical intervention is not required for asymptomatic elevated blood pressure. The patient provided a log of his home blood pressure readings, which show consistent morning values in the 130s/90s with higher readings in the evenings. In alignment with the updated AHA 2025 guidelines, I recommended close outpatient follow?up with his primary care provider and advised him to share his home blood pressure measurements for ongoing management and potential medication adjustment. At the time of discharge, his blood pressure had improved to 143/85. He was discharged from the ED in stable condition. Discharge Plan Departure Patient Disposition: Home Clinical Impression: Hypertension Instructions: Essential Hypertension Activity Restrictions/Additional Instructions: You were seen in the emergency department for concerns of high blood pressure. In the ER: -- Your physical exam was not concerning for an acute stroke. -- Cardiac workup was not consistent with a heart attack -- Your creatinine, a measure of kidney function, has not been affected by your blood pressure Plan: -- Continue plan follow up with cardiology and your primary care physician for continued management of your blood pressure -- Return to the ER if you develop chest pain, shortness of breath, clamminess, weakness on one side of your body, word-finding difficulty, worsening slur, or any concerning symptoms. Prescriptions: No Action (DME) Contour Next Test Strips Strip See Rx Instructions .ROUTE 4XD Qty: 10 Rx Instructions: As directed (DME) lancets [OneTouch Delica Plus Lancet] 30 gauge misc See Rx Instructions .ROUTE 4XD Qty: 100 Rx Instructions: As directed glipizide 5 mg tablet 5 mg PO DAILY metformin 500 mg tablet 500 mg PO DAILY losartan 25 mg tablet 25 mg PO DAILY aspirin [Adult Aspirin Regimen] 81 mg tablet,delayed release (DR/EC) 81 mg PO DAILY tamsulosin 0.4 mg capsule 0.4 mg PO BEDTIME Qty: 90 3RF Referrals: Jesús Chavez MD [Primary Care Provider, Family Practice] Stand Alone Forms: Patient Portal/API
[2025-05-11 05:00] VITALS: BP 159/87; PULSE 83; RESP 17; O2SAT 94
[2025-05-11 07:03] VITALS: BP 143/85; PULSE 90; RESP 18; O2SAT 95
== END 2025-05-11 07:00 | disposition home or self-care (01) ==
PROVIDERS: Emergency Provider Student in an Organized Health Care Education/Training Program; PCP Family Medicine
DX: I10 Essential (primary) hypertension (principal); R07.89 Other chest pain; E11.9 Type 2 diabetes mellitus without complications
CPT/HCPCS: 36415; 71045; 80053; 82550; 83690; 83735; 83880; 84484; 85025; 85610; 85730; 93005; 99283; 99284